=== PATIENT | male | born 1950 | race Hispanic/Latino ===

== ENCOUNTER 2023-08-28 04:59 | Observation (INO) | payer MEDICARE ==
[2023-08-26 13:17] VITALS: BP 125/67; PULSE 72; RESP 20
[2023-08-26 13:36] LABS: BASOPHILS # (AUTO) 0.03 K/uL (0.00-0.20); BASOPHILS % (AUTO) 0.4 % (0.0-5.0); EOSINOPHILS # (AUTO) 0.19 K/uL (0.00-0.70); EOSINOPHILS % (AUTO) 2.4 % (0.0-8.0); HEMATOCRIT 39.7 % (42-54); IMMATURE GRANULOCYTE ABSOLUTE 0.01 K/uL (0-1); LYMPHOCYTES % (AUTO) 25.6 % (21.0-51.0); MEAN CORPUSCULAR HEMOGLOBIN 31.8 pg (27.0-33.0); MEAN CORPUSCULAR VOLUME 93.6 fL (79-99); MONOCYTES # (AUTO) 0.5 K/uL (0.1-1.0); MONOCYTES % (AUTO) 6.5 % (3.0-13.0); NEUTROPHILS # (AUTO) 5.1 K/uL (1.8-7.7); PLATELET COUNT (AUTO) 205 K/uL (130-400); RED BLOOD CELL COUNT(AUTO) 4.24 MIL/uL (4.50-6.20); RED CELL DISTRIBUTION WIDTH 12.4 % (11.0-15.5); WHITE BLOOD COUNT (AUTO) 7.9 K/uL (4.8-10.8)
[2023-08-26 13:49] LABS: CREATININE 1.2 mg/dL (0.5-1.5); POTASSIUM 4.2 mmol/L (3.5-5.1)
[2023-08-26 13:51] LABS: INR < 0.93 (0.85-1.15); PROTHROMBIN TIME 10.7 SEC (9.6-11.6)
[2023-08-26 13:53] LABS: PARTIAL THROMBOPLASTIN TIME 28.3 SEC (26.3-35.5)
[2023-08-28] VITALS (25 sets, daily range): BP systolic 126–171; BP diastolic 72–102; PULSE 64–82; RESP 15–18; O2SAT 95–97
[~2023-08-28] VITALS: Ht 167.6 cm; Wt 158.3 kg
[~2023-08-28 04:59] MED LIST: ACET-2521 PO; AEC81 PO; ALBU18HF7 IH; ASCO500C18 PO; CELE200C PO; CLON0.1T PO; FLUT8AER3 IH; FURO40TA5 PO; IBUP-2077 PO; INSU100V12 SQ; LEVO200C2 PO; LEVO88TA72 PO; LOSA100T59 PO; METF-444 PO; MOME17SP15 NS; NAPR-1023 PO; OMEG100033 PO; OMEP40CA21 PO; PREG50 PO; SEMA1PEN3 SQ; SIMV-43 PO; SPIR25TA6 PO; VITA100049 PO; ZINC220C6 PO
[2023-08-28] MEDS ORDERED: 0.9%NACL 1000ML 1,000 ML IV ONE (06:06)
[2023-08-28] MEDS ORDERED: CEFAZOLIN SODIUM 1 GM VIAL ONE ×3 (06:06→13:37)
[2023-08-28] MEDS ORDERED: CEFAZOLIN SODIUM 2 GM VIAL ONE (06:06)
[2023-08-28] MEDS ORDERED: 0.9%NACL 100ML 48.45 ML, ROPIVACAINE 0.5% 5MG/ML 30ML 246.25 MG, KETOROLAC TROMETHAMINE... IV PRN ×5 (07:30)
[2023-08-28] MEDS ORDERED: NEOSTIGMINE 5MG/5ML SYR IV ONE (08:43)
[2023-08-28] MEDS ORDERED: LIDOCAINE PF 100MG/5ML (2%) SYRINGE 5ML ONE (08:43)
[2023-08-28] MEDS ORDERED: SUCCINYLCHOLINE CHLORIDE 20 MG/ML 10 ML VIAL ONE (08:43)
[2023-08-28] MEDS ORDERED: MIDAZOLAM HCL 1 MG/ML 2ML VIAL ONE (08:43)
[2023-08-28] MEDS ORDERED: DEXAMETHASONE SOD PHOSPHATE 10MG/ML 1ML VIAL ONE (08:43)
[2023-08-28] MEDS ORDERED: PROPOFOL 10 MG/ML 20ML VIAL IV ONE (08:43)
[2023-08-28] MEDS ORDERED: FENTANYL CITRATE PF 50 MCG/1 ML 2ML VIAL ONE (08:44)
[2023-08-28] MEDS ORDERED: ONDANSETRON 4MG INJ ONE ×3 (08:44→15:15)
[2023-08-28] MEDS ORDERED: ROCURONIUM 10MG/1ML SYR 10 MG/ML ML ONE ×2 (08:44→12:11)
[2023-08-28] MEDS ORDERED: TRANEXAMIC ACID 1000MG/10ML ONE (09:51)
[2023-08-28] MEDS ORDERED: GENTAMICIN SULFATE 80 MG/2 ML VIAL ONE ×2 (09:51→13:37)
[2023-08-28] MEDS ORDERED: FENTANYL CITRATE PF 50 MCG/1 ML 5ML AMP IV ONE (12:31)
[2023-08-28] MEDS ORDERED: MEPERIDINE-PF 25 MG/ML SYG ONE (15:16)
[2023-08-28] MEDS ORDERED: DIPHENHYDRAMINE HCL 25 MG CAPSULE PO PRN (16:00)
[2023-08-28] MEDS ORDERED: ACETAMINOPHEN 325 MG TAB PO SCH (16:00)
[2023-08-28] MEDS ORDERED: LACTULOSE 20 GM/30 ML UDCUP PO PRN (16:00)
[2023-08-28] MEDS ORDERED: ACETAMINOPHEN 325 MG TAB PO PRN ×2 (16:00)
[2023-08-28] MEDS ORDERED: DIPHENOXYLATE HCL/ATROPINE 2.5/0.025 MG TAB PO PRN (16:00)
[2023-08-28] MEDS ORDERED: DIPHENHYDRAMINE HCL 25 MG CAPSULE PO SCH (16:00)
[2023-08-28] MEDS ORDERED: ONDANSETRON 4MG INJ IVP PRN (16:00)
[2023-08-28] MEDS ORDERED: DiphenhydrAMINE HCL 50 MG/ML VIAL IM PRN (16:00)
[2023-08-28] MEDS ORDERED: MAG/ALUM/SIMETH 30 ML UDCUP PO PRN (16:00)
[2023-08-28] MEDS ORDERED: HYDROMORPHONE PCA 10 MG/50 ML 50 ML IV PRN (16:00)
[2023-08-28] MEDS ORDERED: ACETAMINOPHEN WITH CODEINE 1 TAB TAB PO PRN (16:00)
[2023-08-28] MEDS ORDERED: BENZOCAINE/MENTH/CETYLPYRD CL 1 EACH LOZENGE MM PRN (16:00)
[2023-08-28] MEDS ORDERED: HYDROMORPHONE PCA 10 MG/50 ML 50 ML IV ONE (16:46)
[2023-08-28] MEDS: PREGABALIN 25 MG CAP PO SCH (20:42)
[2023-08-28] MEDS: SIMVASTATIN 20 MG TABLET PO SCH (20:42)
[2023-08-28] MEDS: CLONIDINE HCL 0.1 MG TABLET PO SCH (20:42)
[2023-08-28] MEDS: SALMETEROL IH SCH (20:43)
[2023-08-28] MEDS: FLUTICASONE IH SCH (20:43)
[2023-08-28] MEDS: CEFAZOLIN SODIUM 3 GM in 0.9%NACL 100ML 100 ML IVPB SCH (20:44)
[2023-08-28] MEDS ORDERED: CEFAZOLIN SODIUM 2 GM VIAL IVPB SCH (20:45)
[2023-08-28] MEDS: HOME MEDICATION 1 EACH IH SCH (20:46)
[2023-08-28] MEDS ORDERED: NON-FORMULARY MEDICATION 1 EACH (Omeprazole 40 MG) PO SCH (21:00)
[2023-08-28] MEDS ORDERED: INSULIN GLARGINE 100 UNITS/ML 10 ML VIAL SQ SCH (21:00)
[2023-08-28] MEDS ORDERED: INSULIN DETEMIR 35 UNIT SQ SCH (21:00)
[2023-08-28] MEDS ORDERED: PREGABALIN 50 MG PO SCH (21:00)
[2023-08-28] MEDS: 0.9%NACL 1000ML 1,000 ML IV SCH (21:54)
[2023-08-29] VITALS (16 sets, daily range): BP systolic 106–134; BP diastolic 52–89; PULSE 70–94; RESP 16–19; O2SAT 96–100
[2023-08-29] MEDS: IPRATROPIUM/ALBUTEROL SULFATE 3 ML SOLUTION IH SCH ×5 (01:20→22:58)
[2023-08-29] MEDS: 0.9%NACL 1000ML 1,000 ML IV SCH ×3 (02:00→16:26)
[2023-08-29 03:06] LABS: HEMATOCRIT 36.1 % (42-54); MEAN CORPUSCULAR HEMOGLOBIN 32.6 pg (27.0-33.0); MEAN CORPUSCULAR HGB CONC 34.6 g/dL (32.0-36.0); MEAN CORPUSCULAR VOLUME 94.3 fL (79-99); RED BLOOD CELL COUNT(AUTO) 3.83 MIL/uL (4.50-6.20)
[2023-08-29] MEDS: CEFAZOLIN SODIUM 3 GM in 0.9%NACL 100ML 100 ML IVPB SCH (03:20)
[2023-08-29 03:25] LABS: CREATININE 1.4 mg/dL (0.5-1.5); INR 0.95 (0.85-1.15); PROTHROMBIN TIME 11.1 SEC (9.6-11.6)
[2023-08-29 03:26] LABS: PARTIAL THROMBOPLASTIN TIME 28.2 SEC (26.3-35.5)
[2023-08-29] MEDS: LEVOTHYROXINE 150 MCG TABLET PO SCH (06:16)
[2023-08-29] MEDS: LEVOTHYROXINE 88 MCG TABLET PO SCH (06:16)
[2023-08-29] MEDS: LEVOTHYROXINE 50 MCG TABLET PO SCH (06:16)
[2023-08-29] MEDS: INSULIN HUMULIN R 100 UNIT/ML 3ML SQ SCH ×4 (07:20→19:57)
[2023-08-29] MEDS ORDERED: INSULIN HUMULIN R 100 UNIT/ML 3ML SQ SCH (07:30)
[2023-08-29] MEDS ORDERED: DEXTROSE 50%-WATER 50 ML DISP.SYRIN IV PRN (07:30)
[2023-08-29] MEDS ORDERED: NON-FORMULARY MEDICATION 1 EACH (Levothyroxine Sodium (Levothyroxine) 200 MCG) PO SCH (07:30)
[2023-08-29] MEDS ORDERED: GLUCAGON 1MG KIT 1 MG ML IM PRN (07:30)
[2023-08-29] MEDS ORDERED: NON-FORMULARY MEDICATION 1 EACH (Vitamin E Mixed (Vitamin E) 1,000 UNIT) PO SCH (09:00)
[2023-08-29] MEDS: SALMETEROL IH SCH ×2 (09:00→18:18)
[2023-08-29] MEDS ORDERED: NON-FORMULARY MEDICATION 1 EACH (Insulin Detemir (Levemir) 60 UNIT) SQ SCH (09:00)
[2023-08-29] MEDS: FLUTICASONE IH SCH ×2 (09:00→18:18)
[2023-08-29] MEDS: HOME MEDICATION 1 EACH IH SCH ×2 (09:00→18:18)
[2023-08-29] MEDS ORDERED: LEVOTHYROXINE SODIUM 88 MCG PO SCH (09:00)
[2023-08-29] MEDS ORDERED: INSULIN GLARGINE 100 UNITS/ML 10 ML VIAL SQ SCH ×2 (09:00→21:00)
[2023-08-29] MEDS ORDERED: [UNRECOGNIZED DRUG - REMARK] NASAL SCH (09:00)
[2023-08-29 09:02] LABS: HEMOGLOBIN A1C 9.7 % (4.0-6.0)
[2023-08-29] MEDS: SPIRONOLACTONE 25 MG TAB PO SCH (09:17)
[2023-08-29] MEDS: LOSARTAN 100 MG TABLET PO SCH (09:17)
[2023-08-29] MEDS: RIVAROXABAN 10 MG TABLET PO SCH (09:18)
[2023-08-29] MEDS: FUROSEMIDE 40 MG TABLET PO SCH (09:18)
[2023-08-29] MEDS: PANTOPRAZOLE 40 MG TAB DR PO SCH (09:18)
[2023-08-29] MEDS: CLONIDINE HCL 0.1 MG TABLET PO SCH ×2 (09:18→19:56)
[2023-08-29] MEDS: METFORMIN HCL 500 MG TABLET PO SCH (09:19)
[2023-08-29] MEDS: ACETAMINOPHEN WITH CODEINE 1 TAB TAB PO PRN ×2 (10:27→16:13)
[2023-08-29] MEDS ORDERED: INSULIN HUMULIN R 100 UNIT/ML 3ML SQ ONE ×2 (14:30→16:30)
[2023-08-29] MEDS: PREGABALIN 25 MG CAP PO SCH (19:56)
[2023-08-29] MEDS: SIMVASTATIN 20 MG TABLET PO SCH (19:57)
[2023-08-30] VITALS (7 sets, daily range): BP systolic 100–104; BP diastolic 44–45; PULSE 71–83; RESP 16–18; O2SAT 93–98
[2023-08-30 03:26] LABS: HEMATOCRIT 30.5 % (42-54); MEAN CORPUSCULAR HEMOGLOBIN 31.9 pg (27.0-33.0); MEAN CORPUSCULAR HGB CONC 33.4 g/dL (32.0-36.0); MEAN CORPUSCULAR VOLUME 95.3 fL (79-99); RED BLOOD CELL COUNT(AUTO) 3.2 MIL/uL (4.50-6.20); RED CELL DISTRIBUTION WIDTH 12.5 % (11.0-15.5); WHITE BLOOD COUNT (AUTO) 9.4 K/uL (4.8-10.8)
[2023-08-30 03:37] LABS: CREATININE 1.3 mg/dL (0.5-1.5); POTASSIUM 3.8 mmol/L (3.5-5.1)
[2023-08-30 03:40] LABS: INR 0.96 (0.85-1.15); PROTHROMBIN TIME 11.2 SEC (9.6-11.6)
[2023-08-30 03:42] LABS: PARTIAL THROMBOPLASTIN TIME 29.6 SEC (26.3-35.5)
[2023-08-30] MEDS: LEVOTHYROXINE 88 MCG TABLET PO SCH (06:11)
[2023-08-30] MEDS: LEVOTHYROXINE 150 MCG TABLET PO SCH (06:11)
[2023-08-30] MEDS: INSULIN HUMULIN R 100 UNIT/ML 3ML SQ SCH (06:12)
[2023-08-30] MEDS: LEVOTHYROXINE 50 MCG TABLET PO SCH (06:12)
[2023-08-30] MEDS: IPRATROPIUM/ALBUTEROL SULFATE 3 ML SOLUTION IH SCH ×2 (06:34→11:28)
[2023-08-30] MEDS ORDERED: INSULIN GLARGINE 100 UNITS/ML 10 ML VIAL SQ SCH (09:00)
[2023-08-30] MEDS: CLONIDINE HCL 0.1 MG TABLET PO SCH (09:00)
[2023-08-30] MEDS: RIVAROXABAN 10 MG TABLET PO SCH (10:01)
[2023-08-30] MEDS: SPIRONOLACTONE 25 MG TAB PO SCH (10:01)
[2023-08-30] MEDS: LOSARTAN 100 MG TABLET PO SCH (10:01)
[2023-08-30] MEDS: METFORMIN HCL 500 MG TABLET PO SCH (10:01)
[2023-08-30] MEDS: PANTOPRAZOLE 40 MG TAB DR PO SCH (10:03)
[2023-08-30] MEDS: FUROSEMIDE 40 MG TABLET PO SCH (10:03)
[2023-09-04] MEDS ORDERED: Semaglutide (Ozempic) 0.5 MG SQ SCH (09:00)
== END 2023-08-30 12:25 | disposition home health service (06) ==
LOC: DAH 04:59 → DAHIP 05:00 → 4DH 15:44
PROVIDERS: ADMIT Orthopaedic Surgery; ATTEND Orthopaedic Surgery
DX: M17.12 Unilateral primary osteoarthritis, left knee (principal); E11.65 Type 2 diabetes mellitus with hyperglycemia; R53.81 Other malaise; I12.9 Hypertensive chronic kidney disease with stage 1 through stage 4 chronic kidney disease, or unspecified chronic kidney disease; E11.22 Type 2 diabetes mellitus with diabetic chronic kidney disease; N18.9 Chronic kidney disease, unspecified; J45.909 Unspecified asthma, uncomplicated; K21.9 Gastro-esophageal reflux disease without esophagitis; E78.5 Hyperlipidemia, unspecified; K74.60 Unspecified cirrhosis of liver; B19.20 Unspecified viral hepatitis C without hepatic coma; Z88.6 Allergy status to analgesic agent; Z79.82 Long term (current) use of aspirin; Z79.4 Long term (current) use of insulin; Z79.84 Long term (current) use of oral hypoglycemic drugs; Z79.01 Long term (current) use of anticoagulants
CPT/HCPCS: 80048 ×3; 85025; 85610 ×3; 85730 ×3; 36415 ×4; 71045; 93005; 87641; 27447; 96365; 96366 ×5; 96368; 82947; 82948 ×10; 97161; 97012; 97116 ×3; 97530 ×5; 94640 ×7; 83036; 85027 ×2; 94664; A6260; G0378 ×39; A4510; A4663; J7120; A4215 ×2; A4649 ×4; J3010 ×2; J0690 ×4; J3490; J1170; J1100; J2710; J0330; J7030 ×2; J2001; J1580 ×2; J2250; J2704; J2405 ×3; J2175; A6223; C1763 ×2; C1776; A5120; A4223; A4222; A4221; A6450; J1815 ×6